=== PATIENT | female | born 1950 | race Caucasian/White ===

== ENCOUNTER 2025-06-27 09:12 | Outpatient (CLI) | payer MEDICARE, BC ==
[2025-06-27 11:01] LABS: #Basophils 0.08 10x3/uL (0.0-0.2); #Eosinophils 0.35 10x3/uL (0.0-0.7); #Monocytes 0.73 10x3/uL (0.11-0.59); #Neutrophils 4.11 10x3/uL (1.40-6.50); %Basophils 1.1 % (0.0-1.0); %Eosinophils 4.8 % (0.0-10.0); %Lymphocytes 26.7 % (21.0-51.0); %Monocytes 10.1 % (0.0-10.0); %Neutrophils 56.9 % (42.0-75.0); Hematocrit 40.8 % (36.0-47.0); Hemoglobin 13.0 g/dL (12.0-16.0); Mean Corpuscular Hemoglobin 29.5 pg (27.0-31.0); Mean Corpuscular Volume 92.5 fL (78.0-98.0); Platelet Count 232 10x3/uL (130-400); Red Blood Cell (RBC) Count 4.41 mill/uL (4.20-5.40); White Blood Cell (WBC) Count 7.23 10x3/uL (4.8-10.8)
[2025-06-27 11:03] LABS: Bacteria/HPF None Seen HPF (None Seen); Glucose, Urine (Dipstick) Normal (Negative); Leukocyte 25 Leu/uL (Negative); Protein, Urine (Dipstick) Negative (Neg-Trace); RBC/HPF 0-3 HPF (0-3); Specific Gravity, Urine 1.019 (1.002-1.036); WBC/HPF 0-3 HPF (0-3)
[2025-06-27 11:14] LABS: Anion Gap 13 mmol/L (10-20); BUN (Urea Nitrogen) 12 mg/dL (9.8-20.1); Calc. Creatinine Clearance 0 mL/min (70-130); Calcium 9.0 mg/dL (7.8-10.44); Carbon Dioxide 24 mmol/L (23-31); Chloride 106 mmol/L (98-107); Glucose 89 mg/dL (83-110); INR-International Normal Ratio 1.0; Potassium 4.0 mmol/L (3.5-5.1); Prothrombin Time 13.0 sec (12.0-14.7); Sodium 139 mmol/L (136-145)
== END 2025-06-27 09:13 | disposition home or self-care (01) ==
LOC: LABBT 09:12
PROVIDERS: ATTEND Orthopaedic Surgery
DX: Z01.818 Encounter for other preprocedural examination (principal); M17.11 Unilateral primary osteoarthritis, right knee
CPT/HCPCS: 71046; 80048; 81001; 85025; 85610; 87081

== ENCOUNTER 2025-06-27 10:03 | Outpatient (CLI) | payer MEDICARE, BC | END 2025-06-27 10:04 | disposition home or self-care (01) | LOC: CT 10:03 | PROVIDERS: ATTEND Orthopaedic Surgery | DX: Z01.818 Encounter for other preprocedural examination (principal); M17.11 Unilateral primary osteoarthritis, right knee | CPT/HCPCS: 71046; 80048; 81001; 85025; 85610; 87081; 93005; 93010 ==